=== PATIENT | female | born 1990 | race American Indian/Alaskan Native ===

== ENCOUNTER 2016-11-03 15:31 | Emergency (ER) | payer MEDICAID, OTHER ==
[2016-11-03] MEDS ORDERED: TYLENOL PO ONE (15:50)
[2016-11-03 20:58] VITALS: BP 150/94
--- NOTE | 2016-11-03 21:33 | Emergency Department Report ---
- General Chief Complaint: Upper Respiratory Infection Stated Complaint: HEADACHE/COUGH/JANNETH Time Seen by Provider: 11/03/16 21:21 Source: patient Mode of arrival: Ambulatory Limitations: No Limitations - History of Present Illness Initial Comments: 26 y/o female complain of headache ,stuffy nose and bodyache x 5 days Complaint: fever, sore throat, nasal congestion Onset/Timin -: days(s) Severity: mild Severity scale (0 -10): 6 Quality: aching Consistency: constant Improves With: nothing Worsens With: nothing Associated Symptoms: denies other symptoms, cough - Related Data Previous Rx's Medication Instructions Recorded Last Taken Type Amoxicillin/K Clav Tab [Augmentin 1 tab PO Q12HR #14 tab 11/03/16 Unknown Rx 875 mg] Ibuprofen [Motrin] 800 mg PO Q8HR PRN #15 tablet 11/03/16 Unknown Rx Allergies Allergy/AdvReac Type Severity Reaction Status Date / Time No Known Allergies Allergy Verified 01/28/16 10:55 ED Review of Systems ROS: Stated complaint: HEADACHE/COUGH/JANNETH Other details as noted in HPI Constitutional: denies: chills, fever Eyes: denies: eye pain, eye discharge, vision change ENT: throat pain. denies: ear pain Respiratory: denies: cough, shortness of breath, wheezing Cardiovascular: denies: chest pain, palpitations Endocrine: no symptoms reported Gastrointestinal: denies: abdominal pain, nausea, diarrhea Genitourinary: denies: urgency, dysuria, discharge Musculoskeletal: denies: back pain, joint swelling, arthralgia Skin: denies: rash, lesions Neurological: denies: headache, weakness, paresthesias Psychiatric: denies: anxiety, depression Hematological/Lymphatic: denies: easy bleeding, easy bruising ED Past Medical Hx - Past Medical History Previous Medical History?: Yes Hx Hypertension: No Hx Congestive Heart Failure: No Hx Diabetes: No Hx Deep Vein Thrombosis: No Hx Renal Disease: No Hx Sickle Cell Disease: No Hx Seizures: No Hx Asthma: Yes Hx COPD: No Hx HIV: No Additional medical history: Hidradenitis suppurativa - Surgical History Past Surgical History?: Yes Additional Surgical History: x 2 - Social History Smoking Status: Never Smoker Substance Use Type: Alcohol - Medications Home Medications: Home Medications Medication Instructions Recorded Confirmed Last Taken Type Amoxicillin/K Clav Tab [Augmentin 1 tab PO Q12HR #14 tab 11/03/16 Unknown Rx 875 mg] Ibuprofen [Motrin] 800 mg PO Q8HR PRN #15 tablet 11/03/16 Unknown Rx ED Physical Exam - General Limitations: No Limitations General appearance: alert, in no apparent distress - Head Head exam: Present: atraumatic, normocephalic - Eye Eye exam: Present: normal appearance, PERRL Pupils: Present: normal accommodation - ENT ENT exam: Present: mucous membranes moist - Expanded ENT Exam Expanded TM/Canal exam: Effusion: Right TM, Left TM, Mastoid Tenderness: Right TM, Left TM Throat exam: Positive: tonsillar erythema, other (post nasal drainage ) - Neck Neck exam: Present: normal inspection - Respiratory Respiratory exam: Present: normal lung sounds bilaterally. Absent: respiratory distress - Cardiovascular Cardiovascular Exam: Present: regular rate, normal rhythm. Absent: systolic murmur, diastolic murmur, rubs, gallop - GI/Abdominal GI/Abdominal exam: Present: soft, normal bowel sounds - Extremities Exam Extremities exam: Present: normal inspection - Back Exam Back exam: Present: normal inspection - Neurological Exam Neurological exam: Present: alert, oriented X3 - Psychiatric Psychiatric exam: Present: normal affect, normal mood - Skin Skin exam: Present: warm, dry, intact, normal color. Absent: rash ED Course Vital Signs 11/03/16 11/03/16 11/03/16 15:41 20:56 21:38 Temperature 100.6 F H 98.7 F Pulse Rate 109 H 113 H 90 Respiratory 20 20 20 Rate Blood Pressure 133/74 Blood Pressure 150/94 [Right] O2 Sat by Pulse 97 93 96 Oximetry ED Medical Decision Making - Medical Decision Making sinusitis Critical care attestation.: If time is entered above; I have spent that time in minutes in the direct care of this critically ill patient, excluding procedure time. ED Disposition Clinical Impression: Sinusitis Qualifiers: Sinusitis location: frontal Chronicity: acute Recurrence: recurrent Qualified Code(s): J01.11 - Acute recurrent frontal sinusitis Disposition: DISCHARGED TO HOME OR SELFCARE Is pt being admited?: No Does the pt Need Aspirin: No Condition: Stable Prescriptions: Amoxicillin/K Clav Tab [Augmentin 875 mg] 1 tab PO Q12HR #14 tab Ibuprofen [Motrin] 800 mg PO Q8HR PRN #15 tablet PRN Reason: Pain Referrals: PRIMARY CARE, [Primary Care Provider] - 3-5 Days Forms: Work/School Release Form(ED)
== END 2016-11-03 21:37 | disposition home or self-care (01) ==
LOC: ED 15:31
DX: J01.11 Acute recurrent frontal sinusitis (principal); J45.909 Unspecified asthma, uncomplicated
CPT/HCPCS: 99282

== ENCOUNTER 2016-11-17 12:27 | Emergency (ER) | payer SELFPAY ==
[2016-11-17 17:15] VITALS: BP 130/83
[2016-11-17] MEDS ORDERED: TYLENOL #3 PO ONE (17:56)
[2016-11-17] MEDS ORDERED: CLEOCIN IM ONE (18:04)
--- NOTE | 2016-11-17 18:05 | Emergency Department Report ---
ED ENT HPI - General Chief complaint: Skin/Abscess/Foreign Body Stated complaint: EARACHE/BOIL/BUTTOCKS AREA Time Seen by Provider: 11/17/16 17:35 Source: patient Mode of arrival: Ambulatory Limitations: No Limitations - History of Present Illness Initial comments: Patient is a 26-year-old female with a history of vaginitis approved fever who presents to ED complaining of tooth pain and vaginal abscess. Patient states tooth pain began about 3 days ago. Patient denies cough and fever. Patient states left lower tooth pain. Patient states she is not able to get to a dentist due to insurance being inactive at the moment. Patient states she has had vaginal abscess for about a month and has been quite painful to touch and started draining about couple of days ago.. Patient denies fevers/chills/nausea/vomiting/abdominal pain/headache/shortness of breath/diarrhea/vaginal bleeding or discharge. - Related Data Previous Rx's Medication Instructions Recorded Last Taken Type Amoxicillin/K Clav Tab [Augmentin 1 tab PO Q12HR #14 tab 11/03/16 Unknown Rx 875 mg] Acetaminophen/Codeine [Tylenol #3] 1 tab PO Q6H PRN #20 tab 11/17/16 Unknown Rx Ibuprofen [Motrin 800 MG tab] 800 mg PO Q8HR PRN #30 tablet 11/17/16 Unknown Rx Sulfamethoxazole/Trimethoprim 1 each PO BID #30 tablet 11/17/16 Unknown Rx [Bactrim DS TAB] Allergies Allergy/AdvReac Type Severity Reaction Status Date / Time No Known Allergies Allergy Verified 01/28/16 10:55 ED Dental HPI - General Chief complaint: Skin/Abscess/Foreign Body Stated complaint: EARACHE/BOIL/BUTTOCKS AREA Source: patient Mode of arrival: Ambulatory Limitations: No Limitations - Related Data Previous Rx's Medication Instructions Recorded Last Taken Type Amoxicillin/K Clav Tab [Augmentin 1 tab PO Q12HR #14 tab 11/03/16 Unknown Rx 875 mg] Acetaminophen/Codeine [Tylenol #3] 1 tab PO Q6H PRN #20 tab 11/17/16 Unknown Rx Ibuprofen [Motrin 800 MG tab] 800 mg PO Q8HR PRN #30 tablet 11/17/16 Unknown Rx Sulfamethoxazole/Trimethoprim 1 each PO BID #30 tablet 11/17/16 Unknown Rx [Bactrim DS TAB] Allergies Allergy/AdvReac Type Severity Reaction Status Date / Time No Known Allergies Allergy Verified 01/28/16 10:55 ED Review of Systems ROS: Stated complaint: EARACHE/BOIL/BUTTOCKS AREA Other details as noted in HPI Constitutional: denies: chills, fever Eyes: denies: eye pain, eye discharge, vision change ENT: denies: ear pain, throat pain Respiratory: denies: cough, shortness of breath, wheezing Cardiovascular: denies: chest pain, palpitations Endocrine: no symptoms reported Gastrointestinal: denies: abdominal pain, nausea, vomiting, diarrhea Genitourinary: denies: urgency, dysuria, discharge Musculoskeletal: denies: back pain, joint swelling, arthralgia Skin: lesions (multiple lesions, training pus in the vaginal area at mons pubis left-sided). denies: rash Neurological: denies: headache, weakness, paresthesias Psychiatric: denies: anxiety, depression Hematological/Lymphatic: denies: easy bleeding, easy bruising ED Past Medical Hx - Past Medical History Previous Medical History?: Yes Hx Hypertension: No Hx Congestive Heart Failure: No Hx Diabetes: No Hx Deep Vein Thrombosis: No Hx Renal Disease: No Hx Sickle Cell Disease: No Hx Seizures: No Hx Asthma: Yes Hx COPD: No Hx HIV: No Additional medical history: Hidradenitis suppurativa - Surgical History Past Surgical History?: Yes Additional Surgical History: x 2 - Social History Smoking Status: Never Smoker Substance Use Type: None - Medications Home Medications: Home Medications Medication Instructions Recorded Confirmed Last Taken Type Amoxicillin/K Clav Tab [Augmentin 1 tab PO Q12HR #14 tab 11/03/16 Unknown Rx 875 mg] Acetaminophen/Codeine [Tylenol #3] 1 tab PO Q6H PRN #20 tab 11/17/16 Unknown Rx Ibuprofen [Motrin 800 MG tab] 800 mg PO Q8HR PRN #30 tablet 11/17/16 Unknown Rx Sulfamethoxazole/Trimethoprim 1 each PO BID #30 tablet 11/17/16 Unknown Rx [Bactrim DS TAB] ED Physical Exam - General Limitations: No Limitations General appearance: alert, in no apparent distress - Head Head exam: Present: atraumatic, normocephalic - Eye Eye exam: Present: normal appearance, PERRL, EOMI Pupils: Present: normal accommodation, irregular - ENT ENT exam: Present: mucous membranes moist - Expanded ENT Exam Expanded TM/Canal exam: Effusion: Left TM (serous fluid behind tympanic membrane), Mastoid Tenderness: Left TM Teeth exam: Present: dental tenderness #. Absent: fractured tooth #, gingival enlargement 1 - Dental Tenderness - Neck Neck exam: Present: normal inspection - Respiratory Respiratory exam: Present: normal lung sounds bilaterally. Absent: respiratory distress, wheezes, rales, rhonchi, stridor, chest wall tenderness - Cardiovascular Cardiovascular Exam: Present: regular rate, normal rhythm. Absent: systolic murmur, diastolic murmur, rubs, gallop - GI/Abdominal GI/Abdominal exam: Present: soft, normal bowel sounds - Rectal Rectal exam: Present: normal inspection. Absent: mass, tenderness - External exam: Present: erythema, swelling, other (multiple draining abscesses located left mons pubis and labia majora, tenderness to palpation) Speculum exam: Present: normal speculum exam. Absent: vaginal discharge, vaginal bleeding Bi-manual exam: Present: normal bi-manual exam. Absent: cervical motion tendernes, adnexal tenderness - Extremities Exam Extremities exam: Present: normal inspection, full ROM, normal capillary refill. Absent: tenderness - Back Exam Back exam: Present: normal inspection, full ROM. Absent: CVA tenderness (R), CVA tenderness (L) - Neurological Exam Neurological exam: Present: alert, oriented X3, CN II-XII intact, normal gait - Psychiatric Psychiatric exam: Present: normal affect, normal mood - Skin Skin exam: Present: warm, dry, intact, normal color. Absent: rash ED Course Vital Signs 11/17/16 11/17/16 13:39 17:12 Temperature 98.4 F Pulse Rate 67 88 Respiratory 18 16 Rate Blood Pressure 119/74 Blood Pressure 130/83 [Left] O2 Sat by Pulse 100 97 Oximetry ED Medical Decision Making - Medical Decision Making Patient is a 26-year-old female who presents with Vulva pain and drainage secondary to Hidradenitis Supprativa and dental pain secondary to dental caries ED course: Patient received 2 tablets of Tylenol 3 for pain as well as clindamycin 150 mg IM. Vital signs stable. Patient is alert and oriented 3 days and no acute respiratory distress Discussed with patient's that drainage will continue. Discussed warm compressions 3-4 times daily. Discussed follow-up with [facility] for her [employer] specialist as well as referrals for a dentist for tooth pain. Patient to be sent home with Bactrim DS, ibuprofen, Tylenol 3. Patient states she understands and will comply to follow-up. Critical care attestation.: If time is entered above; I have spent that time in minutes in the direct care of this critically ill patient, excluding procedure time. ED Disposition Clinical Impression: Vulval hidradenitis suppurativa, Tooth ache, Dental caries Disposition: DISCHARGED TO HOME OR SELFCARE Is pt being admited?: No Does the pt Need Aspirin: No Condition: Stable Instructions: Cellulitis (ED), Sinusitis (ED), Earache (ED), Heat Pack Application (ED) Prescriptions: Acetaminophen/Codeine [Tylenol #3] 1 tab PO Q6H PRN #20 tab PRN Reason: Pain Ibuprofen [Motrin 800 MG tab] 800 mg PO Q8HR PRN #30 tablet PRN Reason: Pain Sulfamethoxazole/Trimethoprim [Bactrim DS TAB] 1 each PO BID #30 tablet Referrals: PRIMARY CARE, [Primary Care Provider] - 3-5 Days [facility] [Outside] - 3-5 Days [facility] [Outside] - 3-5 Days [facility] [Outside] - 3-5 Days [facility] [Outside] - 3-5 Days [facility] [Outside] - 3-5 Days [facility] [Outside] - 3-5 Days [facility] [Outside] - 3-5 Days Forms: Work/School Release Form(ED) Time of Disposition: 18:26
== END 2016-11-17 18:58 | disposition home or self-care (01) ==
LOC: ED 12:27
DX: L73.2 Hidradenitis suppurativa (principal); K02.9 Dental caries, unspecified; K08.89 Other specified disorders of teeth and supporting structures; J45.909 Unspecified asthma, uncomplicated
CPT/HCPCS: 96372

== ENCOUNTER 2016-12-28 16:23 | Emergency (ER) | payer OTHER ==
--- NOTE | 2016-12-28 17:00 | Emergency Department Report ---
Chief Complaint: Skin/Abscess/Foreign Body Stated Complaint: FINGER SWELLING/WEAKNESS/HYDRONITIS DRAINING Time Seen by Provider: 12/28/16 16:51 - HPI History of Present Illness: PT c/o L long finger and R thumb swelling. PT reports fever. PT reports limited ROM to L long finger. - ROS Review of Systems: + skin changes + swelling + fever - Exam Vital Signs: Vital Signs 12/28/16 16:39 Temperature 100.4 F H Pulse Rate 104 H Respiratory 20 Rate Blood Pressure 129/79 O2 Sat by Pulse 100 Oximetry Physical Exam: swelling to L long finger. paryonchia to R thumb. MSE screening note: Focused history and physical exam performed. Due to findings the following was ordered: labs, xr Patient discussed with doctor:: GOPI QUEZADA ED Disposition for MSE Condition: Stable
[2016-12-28] MEDS ORDERED: TYLENOL PO ONE (17:02)
[2016-12-28 17:53] LABS: Hematocrit 29.9 % (30.3-42.9); Hemoglobin 9.4 gm/dl (10.1-14.3); Mean Corpuscular HGB Conc 32 % (30-34); Mean Corpuscular Volume 76 fl (79-97); Platelet Count 278 K/mm3 (140-440); Red Blood Count 3.93 M/mm3 (3.65-5.03); Red Cell Distribution Width 16.8 % (13.2-15.2); White Blood Count 8.5 K/mm3 (4.5-11.0)
[2016-12-28 17:58] LABS: Mean Corpuscular Hemoglobin 24 pg (28-32)
[2016-12-28 18:09] LABS: Alanine Aminotransferase 11 units/L (7-56); Albumin 3.6 g/dL (3.9-5); Albumin/Globulin Ratio 0.8 %; Alkaline Phosphatase 69 units/L (35-129); Anion Gap 19 mmol/L; Bilirubin,Total 0.4 mg/dL (0.1-1.2); Blood Urea Nitrogen 9 mg/dL (7-17); Carbon Dioxide 23 mmol/L (22-30); Chloride 98.7 mmol/L (98-107); Glucose 86 mg/dL (65-100); Potassium 3.5 mmol/L (3.6-5.0); Sodium 137 mmol/L (137-145); Total Protein 8.3 g/dL (6.3-8.2)
[2016-12-28 19:21] LABS: Eosinophils % (Auto) 1.2 % (0.0-4.3)
[2016-12-28 19:28] LABS: Basophils % (Manual) 0 % (0.0-1.8); Blastocytes % (Manual) 0 %; Eosinophils % (Manual) 0 % (0.0-4.3)
[2016-12-28 19:29] LABS: Anisocytosis 1+; Diff Status Complete; Hypochromasia 1+; Large Platelets 1+; Platelet Estimate Consistent w Auto
--- NOTE | 2016-12-29 07:29 | XRay Report ---
LEFT FINGERS, 3 VIEWS: History: Pain and swelling of the third digit. Findings: Mild diffuse soft tissue swelling of the third digit is suspected. There is normal bone mineralization. No acute osseous findings or joint pathology is detected. Impression: Nonspecific soft tissue swelling of the third digit. No bony abnormality is detected.
[2016-12-29] MEDS ORDERED: XYLOCAINE 1% 20 mL INFILTRATI ONE (08:11)
--- NOTE | 2016-12-29 08:36 | Emergency Department Report ---
- General Chief complaint: Skin/Abscess/Foreign Body Stated complaint: FINGER SWELLING/WEAKNESS/HYDRONITIS DRAINING Time Seen by Provider: 12/28/16 16:51 Source: patient Mode of arrival: Ambulatory Limitations: No Limitations - History of Present Illness Initial comments: 26-year-old female presents to the emergency department complaining of pain and swelling to 2 of her fingers. Patient states she had a manicure 5 days ago. She reports 4 days ago she began having tightness in her right thumb and her left third finger. 2 days ago she began noticing pus under the skin. She states she has been having fever. Patient states she is able to move the fingers, but range of motion is limited secondary to the swelling. There are no other complaints. -: Gradual, days(s) (4) Location: L hand, R hand Severity: mild Quality: aching Consistency: constant Improves with: none Worsens with: none Associated symptoms: fever Treatments Prior to Arrival: none - Related Data Previous Rx's Medication Instructions Recorded Last Taken Type Amoxicillin/K Clav Tab [Augmentin 1 tab PO Q12HR #14 tab 11/03/16 Unknown Rx 875 mg] Acetaminophen/Codeine [Tylenol #3] 1 tab PO Q6H PRN #20 tab 11/17/16 Unknown Rx Ibuprofen [Motrin 800 MG tab] 800 mg PO Q8HR PRN #30 tablet 11/17/16 Unknown Rx Sulfamethoxazole/Trimethoprim 1 each PO BID #30 tablet 11/17/16 Unknown Rx [Bactrim DS TAB] Cephalexin [Keflex] 500 mg PO TID #21 capsule 12/29/16 Unknown Rx HYDROcodone/APAP 5-325 [Orgas 1 each PO Q6HR PRN #20 tablet 12/29/16 Unknown Rx 5/325] Allergies Allergy/AdvReac Type Severity Reaction Status Date / Time No Known Allergies Allergy Verified 01/28/16 10:55 Abscess Boil HPI - HPI Chief Complaint: Skin/Abscess/Foreign Body Stated Complaint: FINGER SWELLING/WEAKNESS/HYDRONITIS DRAINING Time Seen by Provider: 12/28/16 16:51 Home Medications: Previous Rx's Medication Instructions Recorded Last Taken Type Amoxicillin/K Clav Tab [Augmentin 1 tab PO Q12HR #14 tab 11/03/16 Unknown Rx 875 mg] Acetaminophen/Codeine [Tylenol #3] 1 tab PO Q6H PRN #20 tab 11/17/16 Unknown Rx Ibuprofen [Motrin 800 MG tab] 800 mg PO Q8HR PRN #30 tablet 11/17/16 Unknown Rx Sulfamethoxazole/Trimethoprim 1 each PO BID #30 tablet 11/17/16 Unknown Rx [Bactrim DS TAB] Cephalexin [Keflex] 500 mg PO TID #21 capsule 12/29/16 Unknown Rx HYDROcodone/APAP 5-325 [Orgas 1 each PO Q6HR PRN #20 tablet 12/29/16 Unknown Rx 5/325] Allergies/Adverse Reactions: Allergies Allergy/AdvReac Type Severity Reaction Status Date / Time No Known Allergies Allergy Verified 01/28/16 10:55 ED Review of Systems ROS: Stated complaint: FINGER SWELLING/WEAKNESS/HYDRONITIS DRAINING Other details as noted in HPI Comment: All other systems reviewed and negative Constitutional: fever Skin: as per HPI (abscess) ED Past Medical Hx - Past Medical History Previous Medical History?: Yes Hx Hypertension: No Hx Congestive Heart Failure: No Hx Diabetes: No Hx Deep Vein Thrombosis: No Hx Renal Disease: No Hx Sickle Cell Disease: No Hx Seizures: No Hx Asthma: Yes Hx COPD: No Hx HIV: No Additional medical history: Hidradenitis suppurativa - Surgical History Past Surgical History?: Yes Additional Surgical History: x 2 - Family History Family history: no significant - Social History Smoking Status: Current Every Day Smoker Substance Use Type: None - Medications Home Medications: Home Medications Medication Instructions Recorded Confirmed Last Taken Type Amoxicillin/K Clav Tab [Augmentin 1 tab PO Q12HR #14 tab 11/03/16 Unknown Rx 875 mg] Acetaminophen/Codeine [Tylenol #3] 1 tab PO Q6H PRN #20 tab 11/17/16 Unknown Rx Ibuprofen [Motrin 800 MG tab] 800 mg PO Q8HR PRN #30 tablet 11/17/16 Unknown Rx Sulfamethoxazole/Trimethoprim 1 each PO BID #30 tablet 11/17/16 Unknown Rx [Bactrim DS TAB] Cephalexin [Keflex] 500 mg PO TID #21 capsule 12/29/16 Unknown Rx HYDROcodone/APAP 5-325 [Orgas 1 each PO Q6HR PRN #20 tablet 12/29/16 Unknown Rx 5/325] ED Physical Exam - General Limitations: No Limitations General appearance: alert, in no apparent distress - Head Head exam: Present: atraumatic, normocephalic - Eye Eye exam: Present: normal appearance, PERRL, EOMI - ENT ENT exam: Present: normal exam, normal orophraynx, mucous membranes moist - Neck Neck exam: Present: normal inspection, full ROM. Absent: tenderness - Respiratory Respiratory exam: Present: normal lung sounds bilaterally. Absent: respiratory distress - Cardiovascular Cardiovascular Exam: Present: regular rate, normal rhythm, normal heart sounds - GI/Abdominal GI/Abdominal exam: Present: soft, normal bowel sounds. Absent: distended, tenderness - Extremities Exam Extremities exam: Present: other (mild edema noted to the right thumb and left third finger. Edema is from the DIP joint to the tip of the thumb and from the PIP joint to the tip of the third finger. Mild erythema is noted on both digits. Each digit has an approximately 2 cm area of fluctuance on the dorsal aspect of the digit with apparent. The material under the skin. Passive range of motion of both digits does not elicit tenderness. Remainder of all extremities are unremarkable.) - Back Exam Back exam: Present: normal inspection, full ROM. Absent: tenderness - Neurological Exam Neurological exam: Present: alert, oriented X3. Absent: motor sensory deficit - Skin Skin exam: Present: warm, dry ED Course Vital Signs 12/28/16 12/29/16 12/29/16 16:39 01:16 09:20 Temperature 100.4 F H 99.4 F Pulse Rate 104 H 110 H 93 H Respiratory 20 14 17 Rate Blood Pressure 129/79 123/82 Blood Pressure 126/67 [Left] O2 Sat by Pulse 100 100 97 Oximetry - I & D Right Finger Type of Procedure: Simple Site: right thumb Blade Size: 11 I & D Procedure: betadine prep Progress: 1 cm incision made on the dorsal aspect of the right thumb just proximal to the nailbed. Moderate amount of purulent material was drained. Left Finger Type of Procedure: Simple Site: left 3rd finger Blade Size: 11 I & D Procedure: betadine prep Progress: 1 cm incision made to dorsal aspect of the finger proximal to the nailbed. Moderate amount of purulent material drained. - Nerve Block Consent Obtained: verbal consent Time Out Performed: Yes Local Anesthetic Used: Lidocaine 1% Amount of anesthesia used: 6 Side: left, right Nerve Blocks: digital Procedure Successful: Yes Complications: none Patient Tolerated Procedure: well ED Medical Decision Making - Lab Data Result diagrams: 12/28/16 17:23 12/28/16 17:23 - Medical Decision Making Lab results reviewed and discussed with the patient. Incision and drainage has been performed as above. Patient will be discharged home on oral anti-biotics and pain medication to follow-up with her primary care physician. - Differential Diagnosis paronychia, tenosynovitis Critical care attestation.: If time is entered above; I have spent that time in minutes in the direct care of this critically ill patient, excluding procedure time. ED Disposition Clinical Impression: Paronychia of finger of left hand Paronychia of finger Qualifiers: Laterality: right Qualified Code(s): L03.011 - Cellulitis of right finger Disposition: DISCHARGED TO HOME OR SELFCARE Is pt being admited?: No Condition: Stable Instructions: Paronychia (ED) Prescriptions: Cephalexin [Keflex] 500 mg PO TID #21 capsule HYDROcodone/APAP 5-325 [Orgas 5/325] 1 each PO Q6HR PRN #20 tablet PRN Reason: Pain Referrals: PRIMARY CARE,MD [Primary Care Provider] - 3-5 Days Time of Disposition: 12:13
[2016-12-29] MEDS ORDERED: NORCO 5/325 PO ONE (12:04)
[2016-12-29 13:19] VITALS: BP 136/86
== END 2016-12-29 13:18 | disposition home or self-care (01) ==
LOC: ED 16:23
DX: L03.012 Cellulitis of left finger (principal); L03.011 Cellulitis of right finger; J45.909 Unspecified asthma, uncomplicated; F17.200 Nicotine dependence, unspecified, uncomplicated
CPT/HCPCS: 36415; 80053; 82140; 85007; 85025; 87040

== ENCOUNTER 2017-07-13 17:34 | Emergency (ER) | payer MEDICAID ==
[2017-07-13 17:47] VITALS: BP 120/71
[2017-07-13] MEDS ORDERED: PROVENTIL IH ONE (17:56)
[2017-07-13 18:44] LABS: Basophils % (Auto) 0.8 % (0.0-1.8); Eosinophils % (Auto) 3.4 % (0.0-4.3); Hematocrit 29.4 % (30.3-42.9); Hemoglobin 9.5 gm/dl (10.1-14.3); Mean Corpuscular HGB Conc 32 % (30-34); Mean Corpuscular Volume 75 fl (79-97); Platelet Count 199 K/mm3 (140-440); Red Cell Distribution Width 17.6 % (13.2-15.2); White Blood Count 9.4 K/mm3 (4.5-11.0)
[2017-07-13 18:46] LABS: Mean Corpuscular Hemoglobin 24 pg (28-32)
[2017-07-13 19:29] LABS: Alanine Aminotransferase 6 units/L (7-56); Albumin 3.2 g/dL (3.9-5); Albumin/Globulin Ratio 0.7 %; Alkaline Phosphatase 74 units/L (35-129); Anion Gap 21 mmol/L; BUN/Creatinine Ratio 18; Blood Urea Nitrogen 9 mg/dL (7-17); Calcium 8.6 mg/dL (8.4-10.2); Carbon Dioxide 19 mmol/L (22-30); Chloride 99.7 mmol/L (98-107); Glucose 74 mg/dL (65-100); Potassium 3.8 mmol/L (3.6-5.0); Sodium 136 mmol/L (137-145); Total Protein 7.6 g/dL (6.3-8.2)
== END 2017-07-13 22:32 | disposition left against medical advice (07) ==
LOC: ED 17:34
DX: Z53.21 Procedure and treatment not carried out due to patient leaving prior to being seen by health care provider (principal)
CPT/HCPCS: 36415; 80048; 80053; 85025

== ENCOUNTER 2017-10-07 20:31 | Outpatient (CLI) | payer MEDICAID ==
[2017-10-07 21:48] VITALS: BP 113/65
[2017-10-07] MEDS ORDERED: LACTATED RINGERS 500 ML IV ONE (22:33)
== END 2017-10-07 23:36 | disposition home or self-care (01) ==
LOC: TRG 20:31
PROVIDERS: ATTEND Obstetrics & Gynecology
DX: O47.03 False labor before 37 completed weeks of gestation, third trimester (principal); Z3A.30 30 weeks gestation of pregnancy
CPT/HCPCS: 59025; J7120